=== PATIENT | female | born 1950 | race Caucasian/White ===

== ENCOUNTER 2017-11-28 08:10 | Day surgery (SDC) | payer OTHER ==
[~2017-11-28 08:10] MED LIST: CLONAZEPAM1 MG PO; ENALAPRIL MALEA20 MG PO; ULTRAM50 MG PO
== END 2017-11-28 13:25 | disposition home or self-care (01) ==
LOC: CIR.AMB 08:10
DX: M65.332 Trigger finger, left middle finger (principal); M24.542 Contracture, left hand